=== PATIENT | female | born 1990 | race Caucasian/White ===

== ENCOUNTER 2019-06-03 23:13 | Emergency (ER) | payer MEDICAID ==
[~2019-06-03] VITALS: Ht 170.2 cm; Wt 79.0 kg
[2019-06-03] MEDS ORDERED: NO HOME MEDS (23:38)
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
[2019-06-04 00:26] LABS: BASOPHILS % (AUTO) 0.6 % (0-1); EOSINOPHILS # (AUTO) 0.1 X10'3 (0-0.9); HEMATOCRIT 38.7 % (35.0-45.0); HEMOGLOBIN 13.2 g/dl (12.0-16.0); LYMPHOCYTES # (AUTO) 2.9 X10'3 (1.1-4.8); LYMPHOCYTES % (AUTO) 35.4 % (21-51); MEAN CORPUSCULAR HEMOGLOBIN 31.3 PG (27.0-31.0); MEAN CORPUSCULAR HGB CONC 34.2 g/dL (33.0-36.5); MEAN CORPUSCULAR VOLUME 91.6 FL (78-98); MEAN PLATELET VOLUME 10.1 FL (7.4-10.4); MONOCYTES # (AUTO) 0.6 X10'3 (0-0.9); MONOCYTES % (AUTO) 7.5 % (2-12); NEUTROPHILS # (AUTO) 4.5 X10'3 (1.8-7.7); NEUTROPHILS % (AUTO) 55.5 % (42-75); PLATELET COUNT 200 X10'3 (140-440); RED BLOOD COUNT 4.22 X10'6 (4.20-5.60); RED CELL DISTRIBUTION WIDTH 13.3 % (11.5-14.5); WHITE BLOOD COUNT 8.2 X10'3 (4.5-11.0)
[2019-06-04 00:30] LABS: URINE HCG NEGATIVE (NEG)
[2019-06-04 00:32] LABS: CLARITY,URINE CLEAR (Clear); COLOR,URINE YELLOW (Yellow); GLUCOSE, URINE NEGATIVE (Neg); KETONES,URINE TRACE mg/dl (Neg); LEUKOCYTE ESTERASE ,URINE NEGATIVE (Neg); NITRITES, URINE NEGATIVE (Neg); OCCULT BLOOD,URINE NEGATIVE (Neg); PROTEIN,URINE NEGATIVE (Neg); UROBILINOGEN,URINE 0.2 E.U/dL (0.2-1.0)
[2019-06-04 00:33] LABS: UA COLLECTION TYPE CLN CATCH MIDSTREAM
[2019-06-04 00:41] LABS: URINE AMPHETAMINE SCREEN NEGATIVE (Neg); URINE BARBITUATE SCREEN NEGATIVE (Neg); URINE BENZODIAZEPINES SCREEN NEGATIVE (Neg); URINE CANNABINOID SCREEN POSITIVE (Neg); URINE COCAINE SCREEN NEGATIVE (Neg); URINE METHADONE SCREEN NEGATIVE (Neg); URINE OPIATE SCREEN NEGATIVE (Neg); URINE PHENCYCLIDINE SCREEN NEGATIVE (Neg)
[2019-06-04 00:41] LABS: ALANINE AMINOTRANSFERASE 19 U/L (12-78); ALBUMIN 3.9 G/DL (3.4-5.0); ALBUMIN/GLOBULIN RATIO 1.2 (1.1-1.5); ALKALINE PHOSPHATASE 48 IU/L (46-116); ANION GAP 9 (8-16); ASPARTATE AMINO TRANSFERASE 16 U/L (10-37); BILIRUBIN,TOTAL 0.5 MG/DL (0.1-1.0); BLOOD UREA NITROGEN 14 MG/DL (7-18); BUN/CREATININE RATIO 16.3 (6.6-38.0); CALCIUM 8.7 MG/DL (8.5-10.1); CHLORIDE 106 MMOL/L (99-107); CREATININE 0.86 MG/DL (0.40-0.90); GLUCOSE 94 MG/DL (70-104); POTASSIUM 3.5 MMOL/L (3.5-5.1); SODIUM 140 MMOL/L (135-145); TOTAL CARBON DIOXIDE 24.8 MMOL/L (24-32); TOTAL PROTEIN 7.1 G/DL (6.4-8.2); eGFR 79 ML/MIN
[2019-06-04 00:50] LABS: ETHANOL < 0.010 GM/DL (0.0-0.010)
[2019-06-04] MEDS ORDERED: LORazepam 1 MG tablet PO ONE (01:00)
[2019-06-04] MEDS ORDERED: nicotine 21mg patch - 24 hr TD ONE (01:20)
--- NOTE | 2019-06-04 02:20 | NUR ---
HER AUNT JUST LEFT. THE PATIENT IS LAYING DOWN, SLEEPING.
--- NOTE | 2019-06-04 02:58 | NUR ---
PT APPEARS TO BE ASLEEP.
--- NOTE | 2019-06-04 03:57 | NUR ---
PT IS STILL ASLEEP
--- NOTE | 2019-06-04 05:09 | NUR ---
pt awoken and moved to room 21 in overflow.
[2019-06-04 05:55] VITALS: BP 92/60
--- NOTE | 2019-06-04 06:00 | NUR ---
pts bp is low. She is "super tired" but otherwise feeling well. Will allow her to rest and next shift can recheck it. She did have an anxiety med earlier.
--- NOTE | 2019-06-04 07:30 | NUR ---
Patient sleeping in bed
--- NOTE | 2019-06-04 08:32 | NUR ---
UPDATED FACESHEET WAS FAXED TO [facility]
--- NOTE | 2019-06-04 09:19 | NUR ---
Patient got up in bed for breakfast. Ate breakfast. currently sleeping again
--- NOTE | 2019-06-04 11:15 | NUR ---
patient used the restroom. Sitting in bed coloring.
--- NOTE | 2019-06-04 11:31 | NUR ---
Took patients BP: 116/76 HR 74. Patient is tearful. states "she feels sad"
[2019-06-04] MEDS ORDERED: LORazepam 1 MG tablet PO PRN (13:45)
--- NOTE | 2019-06-04 14:00 | NUR ---
Patient is crying, very anxious, ativan prn order given
--- NOTE | 2019-06-04 16:31 | NUR ---
spoke with [facility] nurse. patient was accepted at [facility] [place], awaiting there arrival
--- NOTE | 2019-06-04 17:00 | NUR ---
Transport for [facility] has arrived patient escorted to vehicle.
== END 2019-06-04 17:00 ==
LOC: ER 23:14
DX: F32.9 Major depressive disorder, single episode, unspecified (principal); F41.9 Anxiety disorder, unspecified; F51.5 Nightmare disorder; F17.200 Nicotine dependence, unspecified, uncomplicated; F10.99 Alcohol use, unspecified with unspecified alcohol-induced disorder; F12.90 Cannabis use, unspecified, uncomplicated; Y90.9 Presence of alcohol in blood, level not specified
CPT/HCPCS: 36415; 80053; 80305; 80320; 81003; 81025; 84443; 85025; 99285

== ENCOUNTER 2019-12-19 19:18 | Emergency (ER) | payer MEDICAID ==
[~2019-12-19] VITALS: Ht 167.6 cm; Wt 80.0 kg
[~2019-12-19 19:18] MED LIST: NO HOME MEDS
[2019-12-19] MEDS ORDERED: HYDROcodone/acetaminophen 5mg/325mg tablet PO ONE (20:10)
[2019-12-19] MEDS ORDERED: HYDR-3965 PO (20:39)
[2019-12-19 20:52] VITALS: BP 129/78
== END 2019-12-19 20:53 | disposition home or self-care (01) ==
LOC: ER 19:18
DX: S92.424A Nondisplaced fracture of distal phalanx of right great toe, initial encounter for closed fracture (principal); F32.9 Major depressive disorder, single episode, unspecified; F12.90 Cannabis use, unspecified, uncomplicated; W20.8XXA Other cause of strike by thrown, projected or falling object, initial encounter; Y93.89 Activity, other specified; Y92.89 Other specified places as the place of occurrence of the external cause; Y99.8 Other external cause status
CPT/HCPCS: 73630; 99283